=== PATIENT | male | born 1990 | race Caucasian/White ===

== ENCOUNTER 2019-08-07 02:55 | Emergency (ER) | payer OTHER ==
[~2019-08-07] VITALS: Ht 172.7 cm; Wt 76.7 kg
[2019-08-07 02:59] VITALS: Ht 172.7 cm; Wt 76.7 kg
[2019-08-07 03:50] VITALS: BP 138/84
== END 2019-08-07 03:50 | disposition home or self-care (01) ==
LOC: ED 02:55
DX: F41.9 Anxiety disorder, unspecified (principal)